=== PATIENT | female | born 1960 | race Caucasian/White ===

== ENCOUNTER 2016-06-03 17:10 | Emergency (ER) | payer OTHER ==
[~2016-06-03] VITALS: Ht 160 cm; Wt 66.2 kg
[2016-06-03 17:26] VITALS: TEMP 37.1; Ht 160 cm; Wt 66.2 kg
[2016-06-03 19:35] LABS: BASO % 0.5 %; BASO ABS # 0.04 K/uL (0-0.2); COMPLETE YES; EOS % 2.1 %; HEMATOCRIT 39.8 % (37-47); IG% 0.2 %; LYMPH % 26.5 %; LYMPH ABS # 2.23 K/uL (1.2-3.4); MEAN CORPUSCULAR HEMOGLOBIN 30.8 pg (25-34); MEAN CORPUSCULAR HGB CONC 34.2 g/dl (32-36); MONO % 10.8 %; NEUT % 59.9 %; PLATELET COUNT 302 K/uL (130-400); RED BLOOD COUNT 4.42 M/uL (4.2-5.4)
[2016-06-03 19:36] LABS: URINE APPEARANCE CLEAR (CLEAR); URINE BILIRUBIN NEG (NEG); URINE COLOR YELLOW; URINE EPITHELIAL CELL AUTO >30 /lpf (0-5); URINE NITRITE NEG (NEG); URINE PH 5.5 (4.5-7.5); URINE SPECIFIC GRAVITY 1.025 (1.000-1.030); UROBILINOGEN NEG (NEG)
[2016-06-03 19:37] LABS: MANUAL MICROSCOPIC REQUIRED? NO; REVIEW REQ? YES
[2016-06-03 19:54] LABS: ALT/SGPT 24 U/L (12-78); AST/SGOT 11 U/L (15-37); BLOOD UREA NITROGEN 15 mg/dl (7-18); BUN/CREATININE RATIO 18.2 (10-20); CARBON DIOXIDE 27 mmol/L (21-32); CHLORIDE 110 mmol/L (98-107); CREATININE 0.82 mg/dl (0.60-1.20); GLUCOSE 115 mg/dl (70-99); SODIUM 144 mmol/L (136-145)
[2016-06-03 19:57] LABS: ALKALINE PHOSPHATASE 116 U/L (45-117)
--- NOTE | 2016-06-03 21:06 | DIAGNOSTIC IMAGING REPORT ---
PELVIC ULTRASOUND, TRANSABDOMINAL AND TRANSVAGINAL HISTORY: Vaginal bleeding. COMPARISON: None. FINDINGS: Uterus: Surgically absent. No abnormality at the vaginal cuff. Right ovary: Not visualized. Left ovary: Normal in size and demonstrates normal color flow. Miscellaneous:No pelvic free fluid. IMPRESSION: Prior hysterectomy. No abnormality at the vaginal cuff. The right ovary was not visualized and may also have been resected. Normal left ovary. Electronically signed by: Fabiano Roche M.D. 06/03/2016 9:04 PM Dictated Date/Time: 06/03/2016 9:03 PM
[2016-06-03] MEDS ORDERED: KETOROLAC TROMETHAMINE 30 MG/ML VIAL IV STA (21:17)
[2016-06-03] MEDS ORDERED: NITR-5 PO (21:20)
[2016-06-03] MEDS ORDERED: NITROFURANTOIN MONOHYDRATE 100 MG CAP PO ONE (21:30)
[2016-06-03 21:32] VITALS: BP 155/76; PULSE 57; O2SAT 98
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
--- NOTE | 2016-06-06 19:05 | Pharmacy Progress Note ---
ED Pharmacist Culture FollowUp Date of Service: Jun 06, 2016. Called patient regarding genital culture with Gardnerella. Prescription for metronidazole 500 mg po BID x7 days called to [facility] at the patient's request. Case discussed with Dr. Irwin, who is the prescribing provider.
[2016-06-07 00:01] LABS: CHLAMYDIA TRACH RNA*** NOT DETECTED (NOT DETECTED); GC (NEIS GONORRHOEAE)RNA** NOT DETECTED (NOT DETECTED)
== END 2016-06-03 21:33 | disposition home or self-care (01) ==
LOC: MERGE 17:12 → C.EDB 17:12
DX: N94.10 Unspecified dyspareunia (principal); N93.9 Abnormal uterine and vaginal bleeding, unspecified; N39.0 Urinary tract infection, site not specified; M54.9 Dorsalgia, unspecified; R11.2 Nausea with vomiting, unspecified; R10.30 Lower abdominal pain, unspecified; F17.200 Nicotine dependence, unspecified, uncomplicated; Z90.711 Acquired absence of uterus with remaining cervical stump; Z83.3 Family history of diabetes mellitus; Z82.49 Family history of ischemic heart disease and other diseases of the circulatory system; Z84.1 Family history of disorders of kidney and ureter; Z82.0 Family history of epilepsy and other diseases of the nervous system

== ENCOUNTER 2021-10-20 18:55 | Inpatient (IN) ==
[2021-10-20] MEDS ORDERED: ONDANSETRON INJ 2 MG/ML 2 ML VIAL IV STA ×2 (20:34→22:33)
[2021-10-20] MEDS ORDERED: ONDANSETRON INJ 2 MG/ML 2 ML VIAL ONE (20:37)
[2021-10-20 21:00] LABS: Hemoglobin 14.8 g/dl (12.0-16.0); Mean Corpuscular Hemoglobin 30.1 pg (25.0-34.0); Mean Corpuscular Hgb Conc 33.6 g/dL (32.0-36.0); Mean Corpuscular Volume 89.6 fL (80.0-100.0); Platelet Count 348 K/uL (130-400); RDW Coefficient of Variation 13.3 % (11.5-14.5); RDW Standard Deviation 43.8 fL (36.4-46.3); Red Blood Count 4.91 M/uL (3.93-5.22); White Blood Count 13.31 K/ul (4.8-10.8)
[2021-10-20 21:20] LABS: Albumin Globulin Ratio 1.3 (0.9-2); Albumin Level 4.3 gm/dl (3.4-5.0); BUN Creatinine Ratio 22.8 (10-20); Bilirubin,Total 0.6 mg/dl (0.2-1.0); Calcium 9.5 mg/dl (8.5-10.1); Creatinine Clr Calc Pharmacy 64.2 ml/min; Est GFR (African American) 95.6 ml/min; Est GFR (Non-African American) 82.5 ml/min; Globulin 3.3 gm/dl (2.5-4.0); Potassium 3.8 mmol/L (3.5-5.1); Total Protein 7.6 gm/dl (6.0-8.3)
[2021-10-20 21:35] LABS: Basophils # (auto) 0.03 K/uL (0-0.2); Basophils % (auto) 0.2 %; Eosinophils # (auto) 0.01 K/uL (0-0.50); Eosinophils % (auto) 0.1 %; Immature Granulocytes # (auto) 0.06 K/uL (0.00-0.02); Immature Granulocytes % (auto) 0.5 %; Lymphocytes # (auto) 0.57 K/uL (1.2-3.4); Lymphocytes % (auto) 4.3 %; Monocytes # (auto) 0.46 K/uL (0.24-0.82); Monocytes % (auto) 3.5 %; Neutrophils # (auto) 12.18 K/uL (1.4-6.5); Neutrophils % (auto) 91.4 %
[2021-10-20] MEDS ORDERED: MoRPHine SULFATE 4 MG/ML 1 ML CARP\\VIAL IV STA (22:33)
[2021-10-20] MEDS ORDERED: methylPREDNISolone 125 MG/2 ML VIAL IV STA (22:57)
[2021-10-20] MEDS ORDERED: diphenhydrAMINE 50 MG/ML VIAL IV STA (22:57)
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
[2021-10-21] MEDS ORDERED: OPTIRAY 300 500mL IV ONE (01:00)
[2021-10-21] MEDS ORDERED: ACETAMINOPHEN 1,000 MG/100 ML VIAL IV STA (02:36)
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
[2021-10-21] MEDS ORDERED: LACTATED RINGER'S 1,000 ML IV ONE (02:53)
[2021-10-21] MEDS ORDERED: LORazepam 2 MG/1 ML VIAL IV STA (03:13)
[2021-10-21] MEDS ORDERED: LORazepam 0.5 MG in SYRINGE 0.25 ML IV PRN (03:16)
[2021-10-21] MEDS ORDERED: PROMETHAZINE HCL 12.5 MG in SODIUM CHLORIDE 0.9% 50 ML IV PRN (03:16)
[2021-10-21] MEDS ORDERED: ACETAMINOPHEN 325 MG TAB PO PRN (06:32)
[2021-10-21 06:41] LABS: Hematocrit (blood only) 41.5 % (34.1-44.9); Hemoglobin 13.8 g/dl (12.0-16.0); Mean Corpuscular Hemoglobin 30.5 pg (25.0-34.0); Mean Corpuscular Hgb Conc 33.3 g/dL (32.0-36.0); Mean Corpuscular Volume 91.6 fL (80.0-100.0); Mean Platelet Volume 10.7 fL (9.4-12.3); Platelet Count 330 K/uL (130-400); RDW Coefficient of Variation 13.6 % (11.5-14.5); RDW Standard Deviation 46.2 fL (36.4-46.3); Red Blood Count 4.53 M/uL (3.93-5.22); White Blood Count 9.91 K/ul (4.8-10.8)
[2021-10-21 06:48] LABS: Estimated Average Glucose 120 mg/dl; Hemoglobin A1C 5.8 % (4.5-5.6)
[2021-10-21 07:04] LABS: Basophils # (auto) 0.02 K/uL (0-0.2); Basophils % (auto) 0.2 %; Immature Granulocytes # (auto) 0.04 K/uL (0.00-0.02); Immature Granulocytes % (auto) 0.4 %; Lymphocytes # (auto) 0.37 K/uL (1.2-3.4); Lymphocytes % (auto) 3.7 %; Monocytes # (auto) 0.07 K/uL (0.24-0.82); Monocytes % (auto) 0.7 %; Neutrophils # (auto) 9.41 K/uL (1.4-6.5)
[2021-10-21 07:12] LABS: BUN Creatinine Ratio 18.9 (10-20); Creatinine Clr Calc Pharmacy 68.5 ml/min; Est GFR (African American) 103.5 ml/min; Est GFR (Non-African American) 89.3 ml/min
--- NOTE | 2021-10-21 07:51 | CT Scan Report ---
CT abd pelvis IV con only CLINICAL HISTORY: LUQ abd pain TECHNIQUE: Helical axial images of the abdomen and pelvis were obtained and displayed. Automated dose lowering techniques and/or adjustment according to patient size were utilized for this exam. This e xam was performed with intravenous contrast. COMPARISON: Comparison is made to CT abdomen pelvis 11/29/2018 FINDINGS: Lower chest: Mild interstitial thickening is seen in the lungs. Liver: Unremarkable. No focal lesions are seen. Gallbladder and biliary tree: No calcified gallstones. Normal caliber wall. No intra- or extrahepatic biliary ductal dilation. Pancreas: Unremarkable, no focal lesions. Spleen: Unremarkable. Adrenals: Unremarkable. Kidneys and ureters: Unremarkable. Bladder: Unremarkable. Reproductive organs: Patient is status post hysterectomy. Bowel: The appendix is normal. There is prominence of some loops of duodenum and proximal jejunum. In addition, there is prominence of a few more distal small bowel loops. There is no evidence of a elaine p transition point. No vascular swirling is noted. The stomach is distended. Stool is noted in the co sylvie. Lymph nodes Retroperitoneal: Unremarkable. Pelvic: Unremarkable. Mesenteric: Unremarkable. Peritoneum: Normal. Vessels: Unremarkable. Abdominal wall: Unremarkable. Bones: Unremarkable. IMPRESSION: A few loops of distended bowel are seen without karl dilation or sharp transition points. Findings m ay represent early/partial small bowel obstruction or ileus. ACT 112: Negative or not required by law. Electronically signed by: Antonino Lares M.D. 10/21/2021 7:50 AM
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
[2021-10-21] MEDS: ENOXAPARIN INJ 40 MG/0.4 ML SYR SQ SCH (10:18)
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
[2021-10-21] MEDS: LACTATED RINGER'S 1,000 ML IV SCH (15:08)
--- NOTE | 2021-10-21 16:15 | Electrocardiogram Report ---
Test Reason : Blood Pressure : / mmHG Vent. Rate : 090 BPM Atrial Rate : 090 BPM P-R Int : 118 ms QRS Dur : 074 ms QT Int : 360 ms P-R-T Axes : 064 001 024 degrees QTc Int : 440 ms Poor data quality, interpretation may be adversely affected Normal sinus rhythm Chronic T-wave inversion in Anteroseptal leads Abnormal ECG When compared with ECG of 18-NOV-2019 11:43, No significant change Confirmed by Skyler Marie ([id number]) on 10/21/2021 4:15:03 PM Referred By: REFERRED SELF Confirmed By:Skyler Marie
[2021-10-22] MEDS: LACTATED RINGER'S 1,000 ML IV SCH (04:05)
[2021-10-22 07:22] VITALS: BP 127/71; PULSE 71; TEMP 98.4; O2SAT 97
[2021-10-22] MEDS: ENOXAPARIN INJ 40 MG/0.4 ML SYR SQ SCH (08:13)
[2021-10-22 09:00] LABS: Hematocrit (blood only) 35.3 % (34.1-44.9); Hemoglobin 11.7 g/dl (12.0-16.0); Mean Corpuscular Hemoglobin 30.2 pg (25.0-34.0); Mean Corpuscular Hgb Conc 33.1 g/dL (32.0-36.0); Mean Corpuscular Volume 91.2 fL (80.0-100.0); Mean Platelet Volume 10.7 fL (9.4-12.3); Platelet Count 275 K/uL (130-400); RDW Coefficient of Variation 13.5 % (11.5-14.5); RDW Standard Deviation 45.5 fL (36.4-46.3); Red Blood Count 3.87 M/uL (3.93-5.22); White Blood Count 9.12 K/ul (4.8-10.8)
[2021-10-22 09:21] LABS: BUN Creatinine Ratio 13.2 (10-20); Calcium 8.7 mg/dl (8.5-10.1); Creatinine Clr Calc Pharmacy 74.6 ml/min; Est GFR (African American) 111.8 ml/min; Est GFR (Non-African American) 96.4 ml/min; Magnesium 1.8 mg/dl (1.7-2.4); Phosphorus 2.5 mg/dl (2.5-4.9); Potassium 3.5 mmol/L (3.5-5.1)
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
== END 2021-10-22 12:01 | disposition home or self-care (01) | DRG 390 ==
LOC: ED 18:55 → EDINP 10-21 03:15 → 3N 10-21 06:40
DX: R73.9 Hyperglycemia, unspecified; Y04.2XXA Assault by strike against or bumped into by another person, initial encounter; Z91.041 Radiographic dye allergy status; F17.200 Nicotine dependence, unspecified, uncomplicated; Z88.6 Allergy status to analgesic agent; K56.690 Other partial intestinal obstruction; R07.89 Other chest pain; Y07.03 Male partner, perpetrator of maltreatment and neglect; M79.7 Fibromyalgia

== ENCOUNTER 2023-06-28 09:35 | Inpatient (IN) ==
[2023-06-28] MEDS: MoRPHine SULFATE 4 MG/ML 1 ML CARP\\VIAL IV PRN (10:21)
[2023-06-28] MEDS: ONDANSETRON INJ 2 MG/ML 2 ML VIAL IV STA (10:21)
[2023-06-28] MEDS: SODIUM CHLORIDE 0.9% 1,000 ML IV STA (10:21)
--- NOTE | 2023-06-28 10:27 | Emergency Department Note ---
Impression & Plan SBO (small bowel obstruction), Acute upper abdominal pain, Nausea & vomiting ED Provider Note NAME: FANTA PEREZ AGE: 62 SEX: F : 1960 ARRIVES VIA: Ambulance INFORMANT: Patient, ED PROVIDER(S): Tomasz Frederick DO CHIEF COMPLAINT: Vomiting HPI: The patient is a 62-year-old female who presented to the emergency department for an evaluation of upper abdominal pain nausea vomiting and GI bleeding. The patient started noticing symptoms over the course the last few days. The patient started having upper abdominal pain nausea vomiting. She started noticing blood in her emesis. Patient called 911 because of ongoing worsening symptoms. She has a similar history of this in the past. The patient denies having any diarrhea. She has not been seen by her family doctor. She denies having any fever. ROS: See above HPI for pertinent positives & negatives. A total of 10 systems reviewed and were otherwise negative. PAST MEDICAL HISTORY: See Below PAST SURGICAL HISTORY: See Below FAMILY HISTORY: See Below SOCIAL HISTORY: See Below HOME MEDICATIONS: See Below ALLERGIES: See Below VITALS: See Below PHYSICAL EXAMINATION: GENERAL: The patient is awake and alert. The patient is very anxious appearing. EYES: The conjunctivae are clear. The pupils are round and reactive. EARS, NOSE, MOUTH AND THROAT: The nose is without any evidence of any deformity. NECK: The neck is nontender and supple. RESPIRATORY: Normal respiratory effort is noted there is no evidence of wheezing rhonchi or rales CARDIOVASCULAR: Regular rate and rhythm noted there no murmurs rubs or gallops normal S1 normal S2. GASTROINTESTINAL: The abdomen is distended. There is diffuse tenderness to palpation especially in the upper abdomen. MUSCULOSKELETAL/EXTREMITIES: There is no evidence of gross deformity full range of motion is noted in the hips and shoulders. SKIN: There is no obvious evidence of any rash. There are no petechiae, pallor or cyanosis noted. NEUROLOGIC: Patient is awake alert and oriented x3 strength is symmetric patellar reflexes are 2+ bilaterally MEDICAL DECISION MAKING: The patient is a 62-year-old female who presented to the emergency department for an evaluation of upper abdominal pain. The patient was treated with IV fluids and IV pain medication as well as IV antiemetics. She was reevaluated multiple times. I discussed the patient's laboratory and radiographic studies with her. Ultimately she was found to have signs of a bowel obstruction on CT. NG tube was ordered. The patient was feeling somewhat improved on my reevaluation. I discussed her condition with the on-call [facility] hospitalist. They have agreed to evaluate the patient in the emergency department for further management and disposition. Triage Nursing notes reviewed. Prior medical records reviewed Vital Signs: reviewed and remarkable for elevated blood pressure Differential diagnosis: Gastroenteritis, food borne illness, infections, appendicitis, diverticulitis, inflammatory bowel disease, obstruction, GI bleed, biliary pathology, volvulus, as well as other pathologies. ER treatment provided: See below Diagnostics interpreted by me: ECG: EKG was obtained in the emergency department. My interpretation is normal sinus rhythm at 77 bpm. There is no ectopy. Nonspecific anterior ST and T wave abnormalities were noted. This was compared to a tracing from October 20, 2021. No changes were noted. Cardiac Monitoring: An order was placed for continuous cardiac monitoring. The monitor shows a rate of 81 bpm with sinus rhythm Laboratory studies: As stated above and show below. Imaging studies: See below. Radiographic imaging was reviewed by myself Consultation(s): I discussed this case with Dr. Rios who is on-call for the [facility]. Past Med/Surg History Medical History (Updated 06/28/23 @ 15:43 by Tomasz Frederick DO) Stomach problems Kidney stones Degenerative disc disease Fibromyalgia Surgical History H/O section History of partial hysterectomy Social History Smoking Status: Current every day smoker Tobacco Type: Cigarettes Hx Alcohol Use: No Hx Substance Use: No Preferred Language: Bahraini Communication Ability: Effective Operator Helper Required: No Beliefs That Will Affect Care: None Current Living Situation: Family Current Living Situation Comment: son and grandson Feels Safe at Home: Yes Assistive Devices: None Allergies Allergies Allergy/AdvReac Type Severity Reaction Status Date / Time aspirin Allergy Severe Swelling Unverified 06/28/23 11:36 of Lip/Tongue/Throat NSAIDS (Non-Steroidal Allergy Severe Swelling Unverified 06/28/23 11:36 Anti-Inflamma of Lip/Tongue/Throat iodine Allergy Swelling Verified 06/28/23 11:36 of Lip/Tongue/Throat Home Meds Home Medications Medication Instructions Recorded Confirmed diphenhydramine HCl 25 mg tablet 25 mg PO TID PRN Allergy Symptoms 06/28/23 06/28/23 (Benadryl Allergy) Results & Data (ED) Vital Signs Vital Signs - 24 hr 06/28/23 09:41 06/28/23 10:18 06/28/23 10:25 Temperature 36.5 C Temperature Source Oral Pulse Rate 82 69 Pulse Rate [Apical] Pulse Rate from SpO2 Sensor Respiratory Rate 19 Blood Pressure 178/92 H Blood Pressure [Left Arm] Blood Pressure Mean 120 Blood Pressure Mean [Left Arm] Pulse Oximetry 98 100 Oxygen Delivery Method Room Air Room Air Sepsis Recent Fever Within 48 Hours No Sepsis New/Unexplained Change in Mental Status N/A Sepsis Action Taken by Nursing No Action Required 06/28/23 10:51 06/28/23 11:00 06/28/23 11:00 Temperature Temperature Source Pulse Rate 63 Pulse Rate [Apical] 60 Pulse Rate from SpO2 Sensor 64 Respiratory Rate 21 15 Blood Pressure 179/105 H Blood Pressure [Left Arm] 197/118 H Blood Pressure Mean 158 Blood Pressure Mean [Left Arm] 144 Pulse Oximetry 97 96 Oxygen Delivery Method Room Air Sepsis Recent Fever Within 48 Hours Sepsis New/Unexplained Change in Mental Status Sepsis Action Taken by Nursing 06/28/23 11:10 06/28/23 11:20 06/28/23 11:30 Temperature Temperature Source Pulse Rate 65 62 80 Pulse Rate [Apical] Pulse Rate from SpO2 Sensor 63 65 98 H Respiratory Rate 14 14 16 Blood Pressure Blood Pressure [Left Arm] Blood Pressure Mean Blood Pressure Mean [Left Arm] Pulse Oximetry 94 94 87 L Oxygen Delivery Method Sepsis Recent Fever Within 48 Hours Sepsis New/Unexplained Change in Mental Status Sepsis Action Taken by Nursing 06/28/23 11:31 06/28/23 11:31 06/28/23 11:40 Temperature Temperature Source Pulse Rate 80 66 Pulse Rate [Apical] Pulse Rate from SpO2 Sensor 78 64 Respiratory Rate 15 13 Blood Pressure 166/142 H Blood Pressure [Left Arm] Blood Pressure Mean 154 Blood Pressure Mean [Left Arm] Pulse Oximetry 94 95 Oxygen Delivery Method Sepsis Recent Fever Within 48 Hours Sepsis New/Unexplained Change in Mental Status Sepsis Action Taken by Nursing 06/28/23 11:50 Temperature Temperature Source Pulse Rate 92 H Pulse Rate [Apical] Pulse Rate from SpO2 Sensor 93 H Respiratory Rate 19 Blood Pressure Blood Pressure [Left Arm] Blood Pressure Mean Blood Pressure Mean [Left Arm] Pulse Oximetry 97 Oxygen Delivery Method Sepsis Recent Fever Within 48 Hours Sepsis New/Unexplained Change in Mental Status Sepsis Action Taken by [facility] Medications Current Medication List: was personally reviewed by me Laboratory Data Attestation: I reviewed the patient's lab results. 06/28/23 09:48 06/28/23 09:48 Lab Results 06/28/23 06/28/23 Range/Units 09:48 10:26 WBC 14.20 H (4.8-10.8) K/ul RBC 5.54 H (4.20-5.40) M/uL Hgb 16.6 H (12.0-16.0) g/dl Hct 49.1 H (37.0-47.0) % MCV 88.6 (80.0-100.0) fL MCH 30.0 (25.0-34.0) pg MCHC 33.8 (32.0-36.0) g/dL RDW Std Deviation 42.2 (36.4-46.3) fL RDW Coeff of Nella 12.9 (11.5-14.5) % Plt Count 408 H (130-400) K/uL MPV 11.3 (9.4-12.4) fL Immature Gran % (Auto) 0.6 % Neut % (Auto) 83.6 % Lymph % (Auto) 8.7 % [place] % (Auto) 4.9 % Eos % (Auto) 2.0 % Baso % (Auto) 0.2 % Neut # (Auto) 11.87 H (1.40-6.50) K/uL Lymph # (Auto) 1.23 (1.20-3.40) K/uL [place] # (Auto) 0.70 H (0.11-0.59) K/uL Eos # (Auto) 0.29 (0.00-0.50) K/uL Baso # (Auto) 0.03 (0.00-0.20) K/uL Immature Gran # (Auto) 0.08 (0.01-0.20) K/uL PT 9.6 (9.0-12.0) Seconds INR 0.9 (0.9-1.1) APTT 25 (21-31) Seconds PTT Ratio 0.9 Sodium 139 (136-145) mmol/L Potassium 4.3 (3.5-5.1) mmol/L Chloride 102 (98-107) mmol/L Carbon Dioxide 26 (21-32) mmol/L Anion Gap 11 (3-11) BUN 22 (6-23) mg/dl Creatinine 0.82 (0.6-1.2) mg/dl Est Cr Clr Drug Dosing 63.5 ml/min Est GFR ( Amer) 90.1 ml/min Est GFR (Non-Af Amer) 77.8 ml/min BUN/Creatinine Ratio 26.8 H (10-20) Glucose 155 H (70-99(Fasting)) mg/dl Calcium 10.3 (8.6-10.3) mg/dl Total Bilirubin 0.4 (0.2-1.0) mg/dl AST 18 (13-39) U/L ALT 19 (7-52) U/L Alkaline Phosphatase 138 H (34-104) U/L Troponin I High Sens 5.5 (0-14) pg/ml Total Protein 8.2 (6.0-8.3) gm/dl Albumin 4.7 (3.4-5.0) gm/dl Globulin 3.5 (2.5-4.0) gm/dl Albumin/Globulin Ratio 1.3 (0.9-2) Lipase 6 L (11-82) U/L Blood Type O Negative Antibody Screen NEGATIVE Administered Medications Morphine Sulfate (Morphine Sulfate 4 Mg/Ml 1 Ml Carp\Vial) 4 mg IV Q15M PRN PRN Reason: Pain Stop: 07/12/23 10:08 Last Admin: 06/28/23 10:21 Dose: 4 mg Documented By: TERRIE Discontinued Medications Sodium Chloride (Nss) 1,000 mls @ 999 mls/hr IV .Q1H1M STA Stop: 06/28/23 11:09 Last Infusion: 06/28/23 13:25 Dose: Infused Documented By: Admin: 06/28/23 10:21 Dose: 999 mls/hr Documented By: TERRIE Pantoprazole Sodium 40 mg/ (Syringe) 10 mls @ 5 mls/min IV NOW ONE Stop: 06/28/23 10:30 Last Admin: 06/28/23 12:50 Dose: 5 mls/min Documented By: SYEDA Famotidine (Pepcid 20mg Iv Push) 20 mg in 5 mls @ 2.5 mls/min IV NOW STA Stop: 06/28/23 10:30 Last Admin: 06/28/23 10:48 Dose: 2.5 mls/min Documented By: TERRIE Promethazine HCl 12.5 mg/ (Sodium Chloride) 50.5 mls @ 202 mls/hr IV NOW STA Stop: 06/28/23 11:34 Last Infusion: 06/28/23 13:25 Dose: Infused Documented By: Admin: 06/28/23 12:51 Dose: 202 mls/hr Documented By: SYEDA Sodium Chloride (Nss) 1,000 mls @ 999 mls/hr IV .Q1H1M ONE Stop: 06/28/23 12:33 Last Admin: 06/28/23 13:02 Dose: 999 mls/hr Documented By: SYEDA Midazolam HCl (Midazolam Hcl 1 Mg/Ml 2ml Vial) 1 mg IV NOW STA Stop: 06/28/23 11:21 Last Admin: 06/28/23 12:03 Dose: 1 mg Documented By: SYEDA Ondansetron HCl (Ondansetron Inj 2 Mg/Ml 2 Ml Vial) 4 mg IV NOW STA Stop: 06/28/23 10:10 Last Admin: 06/28/23 10:21 Dose: 4 mg Documented By: TERRIE Imaging Data Attestation: I personally reviewed and interpreted this imaging study as follows: My Impression: CT of the abdomen and pelvis was obtained in the emergency department. My interpretation is dilated loops of small bowel, final report below Radiologist's Impression: Abdomen/Pelvis CT 06/28/23 10:10 CT SCAN OF THE ABDOMEN AND PELVIS WITHOUT IV CONTRAST CLINICAL HISTORY: Vomiting. Upper abdominal pain. COMPARISON STUDY: Abdominal CT dated 08/05/2022. TECHNIQUE: CT scan of the abdomen and pelvis is performed from the lung bases to the proximal femora. Images are reviewed in the axial, sagittal, and coronal planes. IV contrast was not administered for this examination. Note that the examination was performed in suboptimal fashion without oral and IV contrast. A dose lowering technique was utilized adhering to the principles of ALARA. CT DOSE: 635.99 mGy.cm FINDINGS: Lung bases: The heart is normal in size and without pericardial effusion. The lung bases are clear noting dependent atelectasis. There is a small hiatal hernia. Liver: The unenhanced liver is normal in size, contour, and attenuation. There is no intrahepatic biliary ductal dilatation. Gallbladder: Unremarkable. Spleen: Normal in size and attenuation. Pancreas: Unremarkable. Adrenal glands: Unremarkable. Kidneys: The unenhanced kidneys are normal in size and without hydronephrosis. There are no renal calculi identified. There is no evidence of contour deforming renal mass lesion. Abdominal vasculature: The abdominal aorta is normal in course and caliber noting moderate atherosclerotic calcification. Bowel: The small bowel loops are distended and fluid-filled, measuring up to 3.4 cm in diameter. A transition point is seen in the right lower pelvis on axial image #2070. The distal/terminal ileum is decompressed, and the appearance is consistent with a small bowel obstruction. No focally thick-walled bowel loops are identified. There is no pneumatosis intestinalis or portal venous gas. Trace interloop fluid is observed. Small bowel is in the pelvis are fecalized. There are scattered colonic diverticula without CT evidence of acute diverticulitis. Fyrt-am-qvxcjwnx fecal retention is noted in the colon. The appendix is normal as visualized. Peritoneum: Trace free fluid is seen in the pelvis. No intraperitoneal free air is identified. There is a small fat-containing umbilical hernia. Lymphadenopathy: None. Pelvic viscera: The bladder is normal as visualized. The uterus is surgically absent. No adnexal lesion is seen. Skeletal structures: There is mild lumbosacral spondylosis and scoliosis. No lytic or blastic lesions are seen. IMPRESSION: 1. Small bowel obstruction. A transition point is suggested in the right lower pelvis and this is likely on the basis of adhesions. 2. There is trace interloop fluid. No intraperitoneal free air is identified. There is no pneumatosis intestinalis or portal venous gas. 3. Additional findings as above. ACT 112: Negative or not required by law. Electronically signed by: Janusz Jang M.D. 06/28/2023 11:02 AM Discharge Plan Visit Data Chief Complaint: Abdominal Pain Stated Complaint: HEMATEMESIS ED Provider: Tomasz Frederick Discharge Problem: SBO (small bowel obstruction), Acute upper abdominal pain, Nausea & vomiting Patient Disposition: Being Evaluated by Hospitalist Discharge Problem: Nausea & vomiting Qualifiers: Vomiting type: unspecified Qualified Code(s): R11.2 - Nausea with vomiting, unspecified
[2023-06-28 10:35] LABS: Basophils # (auto) 0.03 K/uL (0.00-0.20); Basophils % (auto) 0.2 %; Eosinophils # (auto) 0.29 K/uL (0.00-0.50); Hematocrit (blood only) 49.1 % (37.0-47.0); Hemoglobin 16.6 g/dl (12.0-16.0); Immature Granulocytes # (auto) 0.08 K/uL (0.01-0.20); Immature Granulocytes % (auto) 0.6 %; Lymphocytes # (auto) 1.23 K/uL (1.20-3.40); Lymphocytes % (auto) 8.7 %; Mean Corpuscular Hgb Conc 33.8 g/dL (32.0-36.0); Mean Corpuscular Volume 88.6 fL (80.0-100.0); Mean Platelet Volume 11.3 fL (9.4-12.4); Monocytes % (auto) 4.9 %; Neutrophils # (auto) 11.87 K/uL (1.40-6.50); Neutrophils % (auto) 83.6 %; Platelet Count 408 K/uL (130-400); RDW Coefficient of Variation 12.9 % (11.5-14.5); RDW Standard Deviation 42.2 fL (36.4-46.3); Red Blood Count 5.54 M/uL (4.20-5.40)
[2023-06-28] MEDS: FAMOTIDINE 20MG IV PUSH 20 MG/5 ML SYR IV STA (10:48)
--- NOTE | 2023-06-28 11:04 | CT Scan Report ---
CT SCAN OF THE ABDOMEN AND PELVIS WITHOUT IV CONTRAST CLINICAL HISTORY: Vomiting. Upper abdominal pain. COMPARISON STUDY: Abdominal CT dated 08/05/2022. TECHNIQUE: CT scan of the abdomen and pelvis is performed from the lung bases to the proximal femora. Images are reviewed in the axial, sagittal, and coronal planes. IV contrast was not administered for this examination. Note that the examination was performed in suboptimal fashion without oral and IV contrast. A dose lowering technique was utilized adhering to the principles of ALARA. CT DOSE: 635.99 mGy.cm FINDINGS: Lung bases: The heart is normal in size and without pericardial effusion. The lung bases are clear no ting dependent atelectasis. There is a small hiatal hernia. Liver: The unenhanced liver is normal in size, contour, and attenuation. There is no intrahepatic gerardo iary ductal dilatation. Gallbladder: Unremarkable. Spleen: Normal in size and attenuation. Pancreas: Unremarkable. Adrenal glands: Unremarkable. Kidneys: The unenhanced kidneys are normal in size and without hydronephrosis. There are no renal nelly culi identified. There is no evidence of contour deforming renal mass lesion. Abdominal vasculature: The abdominal aorta is normal in course and caliber noting moderate atheroscle rotic calcification. Bowel: The small bowel loops are distended and fluid-filled, measuring up to 3.4 cm in diameter. A tr ansition point is seen in the right lower pelvis on axial image #2070. The distal/terminal ileum is d ecompressed, and the appearance is consistent with a small bowel obstruction. No focally thick-walled bowel loops are identified. There is no pneumatosis intestinalis or portal venous gas. Trace interlo op fluid is observed. Small bowel is in the pelvis are fecalized. There are scattered colonic diverti cula without CT evidence of acute diverticulitis. Dpad-iv-ayhifwnw fecal retention is noted in the co sylvie. The appendix is normal as visualized. Peritoneum: Trace free fluid is seen in the pelvis. No intraperitoneal free air is identified. There is a small fat-containing umbilical hernia. Lymphadenopathy: None. Pelvic viscera: The bladder is normal as visualized. The uterus is surgically absent. No adnexal lesi on is seen. Skeletal structures: There is mild lumbosacral spondylosis and scoliosis. No lytic or blastic lesions are seen. IMPRESSION: 1. Small bowel obstruction. A transition point is suggested in the right lower pelvis and this is lik opal on the basis of adhesions. 2. There is trace interloop fluid. No intraperitoneal free air is identified. There is no pneumatosis intestinalis or portal venous gas. 3. Additional findings as above. ACT 112: Negative or not required by law. Electronically signed by: Janusz Jang M.D. 06/28/2023 11:02 AM
[2023-06-28 11:26] LABS: Troponin I High Sensitivity 5.5 pg/ml (0-14)
[2023-06-28 11:28] LABS: Albumin Globulin Ratio 1.3 (0.9-2); Albumin Level 4.7 gm/dl (3.4-5.0); BUN Creatinine Ratio 26.8 (10-20); Bilirubin,Total 0.4 mg/dl (0.2-1.0); Calcium 10.3 mg/dl (8.6-10.3); Creatinine Clr Calc Pharmacy 63.5 ml/min; Est GFR (African American) 90.1 ml/min; Est GFR (Non-African American) 77.8 ml/min; Globulin 3.5 gm/dl (2.5-4.0); Potassium 4.3 mmol/L (3.5-5.1); Total Protein 8.2 gm/dl (6.0-8.3)
--- NOTE | 2023-06-28 11:41 | History & Physical Report ---
Date of Service June 28, 2023 Assessment & Plan (1) Small bowel obstruction: (2) Abdominal pain: (3) Elevated BP without diagnosis of hypertension: (4) Leucocytosis: Plan 62 year old female with h/o SBOs who presented with abd pain and vomiting and found to have SBO. CT A/P 1. Small bowel obstruction. A transition point is suggested in the right lower pelvis and this is likely on the basis of adhesions. 2. There is trace interloop fluid. No intraperitoneal free air is identified. There is no pneumatosis intestinalis or portal venous gas. Small bowel obstruction suspected due to adhesions- CT as above, NG tube placed in ED. Continue conservative management with npo, bowel rest, ivf, iv antiemetics prn, iv analgesics prn, NG suction. I spoke to surgery Dr Siu who will see the patient in consult. If fails to resolve with conservative management, she will need surgery. Leucocytosis- likely reactive, recheck in am Elevated BP- no h/o HTN- likely due to above. Will monitor. IV HLZ prn Tobacco abuse- smokes 1 pack every 3 days. Declined nicotine patch Hematemesis- likely Betzy Edwards tear due to vomiting episodes. H and H at 16, likely some hemoconcentration. Will monitor with NG tube. Recheck H and H later today. Will continue IV PPI for now. If concerning, will need GI eval. DVT ppx- SCDs. Holding chemoppx d/t concern for hematemesis- can resume tomorrow if stable Dispo- Admit to [facility] on tele Time spent- approx 75 mins Updated sister at bedside History of Present Illness Chief Complaint: abd pain/vomiting Primary Care Provider: Sim Adame MD 62 year old female with h/o fibromyalgia, DDD, tobacco abuse who presented to the ED with nausea, vomiting and abd pain which started yesterday after 3 pm yesterday. She had multiple episodes of vomiting and there was some blood in the latter vomitus. She still smokes 1 pack every 3 days. Does not drink alcohol or drugs. H/o prior CS but no other abdominal surgeries. Does not take any medications. In the ED, she was found to have SBO in CT and NG tube was placed. Her BP was higher when she came but was in 160s during my encounter. Allergies Allergy/AdvReac Type Severity Reaction Status Date / Time aspirin Allergy Severe Swelling Unverified 06/28/23 11:36 of Lip/Tongue/Throat NSAIDS (Non-Steroidal Allergy Severe Swelling Unverified 06/28/23 11:36 Anti-Inflamma of Lip/Tongue/Throat iodine Allergy Swelling Verified 06/28/23 11:36 of Lip/Tongue/Throat Home Medications Medication Instructions Recorded Confirmed Type diphenhydramine HCl 25 mg tablet 25 mg PO TID PRN Allergy Symptoms 06/28/23 06/28/23 History (Benadryl Allergy) Past Med/Surg History Medical History Stomach problems Kidney stones Degenerative disc disease Fibromyalgia Surgical History H/O section History of partial hysterectomy Social History Smoking Status: Current every day smoker Tobacco Type: Cigarettes Hx Alcohol Use: No Hx Substance Use: No Preferred Language: Czech Communication Ability: Effective Infection Preventionist Required: No Beliefs That Will Affect Care: None Current Living Situation: Family Current Living Situation Comment: son and grandson Feels Safe at Home: Yes Assistive Devices: None Review of Systems Review of Systems: All systems reviewed & are unremarkable except as noted in Subjective Physical Exam Physical Exam: General: Lying comfortably in bed, not in distress, on room air HEENT: EOMI, SKIP. NG tube with suction- no blood noted Chest: Clear breath sounds bilaterally, no wheezes or crackles CVS: Regular rate and rhythm, normal heart sounds, no murmur Abdomen: Soft, not distended, bowel sounds present Neuro: Awake, alert, oriented, conversing well, non focal Extremities: No edema Psych: Anxious Results & Data Results & Data Vital Signs (Past 12 Hours) Vital Signs Temp Pulse Pulse Resp BP BP Pulse Ox 06/28/23 10:51 60 21 197/118 H 97 06/28/23 10:25 100 06/28/23 10:18 69 06/28/23 09:41 36.5 C 82 19 178/92 H 98 O2 Del Method 06/28/23 10:51 Room Air 06/28/23 10:25 Room Air 06/28/23 10:18 06/28/23 09:41 Room Air Laboratory Results Short CBC 06/28/23 Range/Units 09:48 WBC 14.20 H (4.8-10.8) K/ul Hgb 16.6 H (12.0-16.0) g/dl Hct 49.1 H (37.0-47.0) % Plt Count 408 H (130-400) K/uL BMP 06/28/23 09:48 Sodium 139 Potassium 4.3 Chloride 102 Carbon Dioxide 26 BUN 22 Creatinine 0.82 Glucose 155 H Calcium 10.3 Liver Function 06/28/23 Range/Units 09:48 Total Bilirubin 0.4 (0.2-1.0) mg/dl AST 18 (13-39) U/L ALT 19 (7-52) U/L Alkaline Phosphatase 138 H (34-104) U/L Albumin 4.7 (3.4-5.0) gm/dl Diagnostic Findings Abdomen/Pelvis CT 06/28/23 10:10 CT SCAN OF THE ABDOMEN AND PELVIS WITHOUT IV CONTRAST CLINICAL HISTORY: Vomiting. Upper abdominal pain. COMPARISON STUDY: Abdominal CT dated 08/05/2022. TECHNIQUE: CT scan of the abdomen and pelvis is performed from the lung bases to the proximal femora. Images are reviewed in the axial, sagittal, and coronal planes. IV contrast was not administered for this examination. Note that the examination was performed in suboptimal fashion without oral and IV contrast. A dose lowering technique was utilized adhering to the principles of ALARA. CT DOSE: 635.99 mGy.cm FINDINGS: Lung bases: The heart is normal in size and without pericardial effusion. The lung bases are clear noting dependent atelectasis. There is a small hiatal hernia. Liver: The unenhanced liver is normal in size, contour, and attenuation. There is no intrahepatic biliary ductal dilatation. Gallbladder: Unremarkable. Spleen: Normal in size and attenuation. Pancreas: Unremarkable. Adrenal glands: Unremarkable. Kidneys: The unenhanced kidneys are normal in size and without hydronephrosis. There are no renal calculi identified. There is no evidence of contour deforming renal mass lesion. Abdominal vasculature: The abdominal aorta is normal in course and caliber noting moderate atherosclerotic calcification. Bowel: The small bowel loops are distended and fluid-filled, measuring up to 3.4 cm in diameter. A transition point is seen in the right lower pelvis on axial image #2070. The distal/terminal ileum is decompressed, and the appearance is consistent with a small bowel obstruction. No focally thick-walled bowel loops are identified. There is no pneumatosis intestinalis or portal venous gas. Trace interloop fluid is observed. Small bowel is in the pelvis are fecalized. There are scattered colonic diverticula without CT evidence of acute diverticulitis. Aqid-bd-ibgqgyvp fecal retention is noted in the colon. The appendix is normal as visualized. Peritoneum: Trace free fluid is seen in the pelvis. No intraperitoneal free air is identified. There is a small fat-containing umbilical hernia. Lymphadenopathy: None. Pelvic viscera: The bladder is normal as visualized. The uterus is surgically absent. No adnexal lesion is seen. Skeletal structures: There is mild lumbosacral spondylosis and scoliosis. No lyt ic or blastic lesions are seen. IMPRESSION: 1. Small bowel obstruction. A transition point is suggested in the right lower pelvis and this is likely on the basis of adhesions. 2. There is trace interloop fluid. No intraperitoneal free air is identified. There is no pneumatosis intestinalis or portal venous gas. 3. Additional findings as above. ACT 112: Negative or not required by law. Electronically signed by: Janusz Jang M.D. 06/28/2023 11:02 AM
[2023-06-28 11:44] LABS: INR 0.9 (0.9-1.1); Partial Thromboplastin Ratio 0.9; Partial Thromboplastin Time 25 Seconds (21-31); Prothrombin Time 9.6 Seconds (9.0-12.0)
[2023-06-28] MEDS: MIDAZOLAM HCL 1 MG/ML 2ML VIAL IV STA (12:03)
[2023-06-28] MEDS: PANTOprazole 40 MG in SYRINGE 0 ML IV ONE (12:50)
[2023-06-28] MEDS: PROMETHAZINE HCL 12.5 MG in SODIUM CHLORIDE 0.9% 50 ML IV STA (12:51)
--- NOTE | 2023-06-28 13:00 | Surgery Consultation ---
Date of Consultation June 28, 2023 Assessment & Plan (1) Small bowel obstruction: NG decompression NPO IVF conservative treatment likely will resolves, o/w exploration indicated Present on Admission?: Yes History of Present Illness History of Present Illness This is a 62YO female with a CT scan suggestive of SBO associated with abdominal pain nausea vomiting. She has had multiple previous admissions for similar episodes. This may have been precipitated by a recent allergic reaction. The patient started noticing symptoms over the course the last few days. The patient started having upper abdominal pain nausea vomiting. She started noticing blood in her emesis. last BM was yesterday and no flatus today. Allergies Allergy/AdvReac Type Severity Reaction Status Date / Time aspirin Allergy Severe Swelling Unverified 06/28/23 11:36 of Lip/Tongue/Throat NSAIDS (Non-Steroidal Allergy Severe Swelling Unverified 06/28/23 11:36 Anti-Inflamma of Lip/Tongue/Throat iodine Allergy Swelling Verified 06/28/23 11:36 of Lip/Tongue/Throat Home Medications Medication Instructions Recorded Confirmed Type diphenhydramine HCl 25 mg tablet 25 mg PO TID PRN Allergy Symptoms 06/28/23 06/28/23 History (Benadryl Allergy) Patient History Medical History (Updated 06/28/23 @ 11:54 by Jerald Rios MD) Stomach problems Kidney stones Degenerative disc disease Fibromyalgia Surgical History H/O section History of partial hysterectomy Social History Smoking Status: Current every day smoker Tobacco Type: Cigarettes Hx Alcohol Use: No Hx Substance Use: No Preferred Language: Haitian Communication Ability: Effective [employer] Required: No Beliefs That Will Affect Care: None Current Living Situation: Family Current Living Situation Comment: son and grandson Feels Safe at Home: Yes Assistive Devices: None Review of Systems Constitutional: + anorexia; no fever and no chills Eyes: no problem reported Ear, Nose, Mouth, Throat: no problem reported Respiratory: no cough and no dyspnea Cardiovascular: no chest pain Gastrointestinal: + abdominal pain, + nausea, + vomiting, + hematemesis and + change in bowel habits Genitourinary: no dysuria Musculoskeletal: no back pain Integumentary: no problem reported Neurologic: + generalized weakness; no localized wea kness Psychiatric: no behavioral changes Endocrine: + fatigue Hematologic / Lymphatic: no easy bleeding and no easy bruising Physical Exam Constitutional: WD/WN, vitals as above Eyes: PERRL, conjunctivae normal, anicteric sclerae ENMT: external ear and nose normal, oropharynx normal Neck: trachea midline Respiratory: normal respiratory effort, lungs clear to auscultation Cardiovascular: RRR, no murmur, no edema Gastrointestinal (Abdomen): Inspection/Auscultation: abdomen normal to inspection, + abdomen distended, normal bowel sounds and + abdominal surgical scar; no visible herniation Percussion/Palpation: + abdomen tender and abdomen soft; no guarding and abdomen not rigid Musculoskeletal: Head/Neck/Chest: normocephalic and head atraumatic Skin: no rashes, warm and dry Results & Data Vital Signs (Past 12 Hours) Vital Signs Temp Pulse Pulse Resp BP BP Pulse Ox 06/28/23 10:51 60 21 197/118 H 97 06/28/23 10:25 100 06/28/23 10:18 69 06/28/23 09:41 36.5 C 82 19 178/92 H 98 O2 Del Method 06/28/23 10:51 Room Air 06/28/23 10:25 Room Air 06/28/23 10:18 06/28/23 09:41 Room Air Diagnostic Findings CT SCAN OF THE ABDOMEN AND PELVIS WITHOUT IV CONTRAST CLINICAL HISTORY: Vomiting. Upper abdominal pain. COMPARISON STUDY: Abdominal CT dated 08/05/2022. TECHNIQUE: CT scan of the abdomen and pelvis is performed from the lung bases to the proximal femora. Images are reviewed in the axial, sagittal, and coronal planes. IV contrast was not administered for this examination. Note that the examination was performed in suboptimal fashion without oral and IV contrast. A dose lowering technique was utilized adhering to the principles of ALARA. CT DOSE: 635.99 mGy.cm FINDINGS: Lung bases: The heart is normal in size and without pericardial effusion. The lung bases are clear noting dependent atelectasis. There is a small hiatal hernia. Liver: The unenhanced liver is normal in size, contour, and attenuation. There is no intrahepatic biliary ductal dilatation. Gallbladder: Unremarkable. Spleen: Normal in size and attenuation. Pancreas: Unremarkable. Adrenal glands: Unremarkable. Kidneys: The unenhanced kidneys are normal in size and without hydronephrosis. There are no renal calculi identified. There is no evidence of contour deforming renal mass lesion. Abdominal vasculature: The abdominal aorta is normal in course and caliber noting moderate atherosclerotic calcification. Bowel: The small bowel loops are distended and fluid-filled, measuring up to 3.4 cm in diameter. A transition point is seen in the right lower pelvis on axial image #[id number]. The distal/terminal ileum is decompressed, and the appearance is consistent with a small bowel obstruction. No focally thick-walled bowel loops are identified. There is no pneumatosis intestinalis or portal venous gas. Trace interloop fluid is observed. Small bowel is in the pelvis are fecalized. There are scattered colonic diverticula without CT evidence of acute diverticulitis. [id number] fecal retention is noted in the colon. The appendix is normal as visualized. Peritoneum: Trace free fluid is seen in the pelvis. No intraperitoneal free air is identified. There is a small fat-containing umbilical hernia. Lymphadenopathy: None. Pelvic viscera: The bladder is normal as visualized. The uterus is surgically absent. No adnexal lesion is seen. Skeletal structures: There is mild lumbosacral spondylosis and scoliosis. No lytic or blastic lesions are seen. IMPRESSION: 1. Small bowel obstruction. A transition point is suggested in the right lower pelvis and this is likely on the basis of adhesions. 2. There is trace interloop fluid. No intraperitoneal free air is identified. There is no pneumatosis intestinalis or portal venous gas. 3. Additional findings as above.
[2023-06-28] MEDS: SODIUM CHLORIDE 0.9% 1,000 ML IV ONE (13:02)
--- NOTE | 2023-06-28 13:56 | XRay Report ---
KUB HISTORY: Status post placement of an enteric tube. Post NG Tube placement x-ray COMPARISON: CT same day FINDINGS: An enteric tube has been placed which coils within the stomach, distal tip projected inferi susanne within the expected location of the gastric cardia. Persistent small bowel distention, unchanged . The lower abdomen and pelvis are excluded from the [id number]. Moderate fecal retention right he micolon. Cardiomegaly. No renal calculi. No ureteral calculi. No pneumoperitoneum or pneumatosis. No fracture. IMPRESSION: 1. Enteric tube coiled within the stomach with distal tip in the expected location of the gastric car ambrocio. 2. Persistent small bowel obstruction. ACT 112: Negative or not required by law. The above report was generated using voice recognition software. It may contain grammatical, syntax o r spelling errors. Electronically signed by: Vipul Samson M.D. 06/28/2023 1:54 PM
[2023-06-28] MEDS: D5W AND 1/2NSS 1,000 ML IV SCH (16:51)
[2023-06-28] MEDS: HYDROmorphone INJ 0.5 MG/0.5 ML SYR IV PRN (16:51)
[2023-06-28 17:32] LABS: Hematocrit (blood only) 39.8 % (37.0-47.0); Hemoglobin 12.9 g/dl (12.0-16.0)
[2023-06-28] MEDS: hydrALAZINE HCL 20 MG/ML VIAL IV SCH (17:54)
[2023-06-28] MEDS: ONDANSETRON INJ 2 MG/ML 2 ML VIAL IV PRN (20:38)
[2023-06-28] MEDS: PANTOprazole 40 MG in SYRINGE 0 ML IV SCH (20:38)
[2023-06-28] MEDS: ACETAMINOPHEN 1,000 MG/100 ML VIAL IV PRN (20:44)
[2023-06-28 23:12] LABS: Hematocrit (blood only) 41.3 % (37.0-47.0); Hemoglobin 13.8 g/dl (12.0-16.0)
[2023-06-29 06:28] LABS: Basophils # (auto) 0.03 K/uL (0.00-0.20); Basophils % (auto) 0.2 %; Eosinophils # (auto) 0.51 K/uL (0.00-0.50); Eosinophils % (auto) 3.6 %; Hematocrit (blood only) 41.8 % (37.0-47.0); Hemoglobin 14.1 g/dl (12.0-16.0); Immature Granulocytes # (auto) 0.07 K/uL (0.01-0.20); Immature Granulocytes % (auto) 0.5 %; Lymphocytes # (auto) 1.53 K/uL (1.20-3.40); Lymphocytes % (auto) 10.9 %; Mean Corpuscular Hemoglobin 30.7 pg (25.0-34.0); Mean Corpuscular Hgb Conc 33.7 g/dL (32.0-36.0); Mean Corpuscular Volume 90.9 fL (80.0-100.0); Monocytes # (auto) 1.14 K/uL (0.11-0.59); Monocytes % (auto) 8.1 %; Neutrophils # (auto) 10.77 K/uL (1.40-6.50); Neutrophils % (auto) 76.7 %; Platelet Count 333 K/uL (130-400); RDW Coefficient of Variation 13.2 % (11.5-14.5); RDW Standard Deviation 43.8 fL (36.4-46.3); White Blood Count 14.05 K/ul (4.8-10.8)
[2023-06-29 07:20] LABS: Total Protein 5.7 gm/dl (6.0-8.3)
[2023-06-29 07:21] LABS: Albumin Globulin Ratio 1.5 (0.9-2); Albumin Level 3.4 gm/dl (3.4-5.0); BUN Creatinine Ratio 11.6 (10-20); Bilirubin,Total 0.4 mg/dl (0.2-1.0); Creatinine Clr Calc Pharmacy 76.5 ml/min; Est GFR (African American) 109.7 ml/min; Est GFR (Non-African American) 94.6 ml/min; Globulin 2.3 gm/dl (2.5-4.0); Magnesium 1.9 mg/dl (1.7-2.4); Potassium 3.8 mmol/L (3.5-5.1)
[2023-06-29] MEDS ORDERED: hydrALAZINE HCL 20 MG/ML VIAL IV PRN (07:29)
--- NOTE | 2023-06-29 07:44 | XRay Report ---
KUB CLINICAL HISTORY: Enteric tube assessment. FINDINGS: An AP, portable, upright view of the lower chest and upper abdomen is compared to abdominal radiograph and CT dated 06/28/2023. An enteric tube is in place. The tip is coiled below the diaphragm projecting over the gastric fundus. There is persistent gaseous distention of the small bowel loops in the upper abdomen indicating persistent obstruction. No intraperitoneal free air is seen below the diaphragm. There are no abnormal calcifications seen in the upper abdomen. The skeletal structures a re osteopenic and appear intact. Scarring/atelectasis is noted at the lung bases. IMPRESSION: 1. An enteric tube is in place as above. 2. Persistent small bowel obstruction. Electronically signed by: Janusz Jang M.D. 06/29/2023 7:42 AM
--- NOTE | 2023-06-29 08:36 | Surgery Progress Note ---
Date of Service June 29, 2023 Assessment & Plan (1) SBO (small bowel obstruction): Plan: clamp NG, remove today if no N/V ambulate IVF if NG out today sips/chips only Admission and Anticipated Discharge Date Admission Date: June 28, 2023 Subjective passing flatus pain controlled Review of Systems Constitutional: no fever and no chills Respiratory: no cough and no dyspnea Cardiovascular: no chest pain Gastrointestinal: + abdominal pain; no nausea and no vomit ing passing flatus Genitourinary: no dysuria Neurologic: no localized weakness and no generalized weakness Psychiatric: no behavioral changes Physical Exam Constitutional: WD/WN, vitals as above Eyes: PERRL, conjunctivae normal, anicteric sclerae Respiratory: normal respiratory effort, lungs clear to auscultation Cardiovascular: RRR, no murmur, no edema Gastrointestinal (Abdomen): Inspection/Auscultation: abdomen normal to inspection and normal bowel sounds; abdomen not distended Percussion/Palpation: abdomen soft; abdomen nontender, no guarding and abdomen not rigid Musculoskeletal: Head/Neck/Chest: normocephalic and head atraumatic Skin: no rashes, warm and dry Results & Data Vital Signs (Past 12 Hours) Vital Signs Temp Pulse Pulse Resp BP Pulse Ox O2 Del Method 06/29/23 07:48 36.8 C 77 16 160/79 H 97 Room Air 06/29/23 07:07 68 06/29/23 04:20 36.7 C 69 20 153/74 H 95 Room Air 06/29/23 00:00 93 H 06/28/23 23:28 36.7 C 75 20 146/89 H 97 Room Air
[2023-06-29 10:06] LABS: Appearance Urine Clear (Clear); Bacteria Urine Automated None Seen (None Seen); Bilirubin Urine Negative (Negative); Blood Urine Trace (Negative); Cast Urine Automated 0-2 /lpf (0-2); Color Urine Yellow; Glucose Urine UA Negative (Negative); Ketones Urine Negative (Negative); Leukocyte Esterase Urine Negative (Negative); Nitrite Urine Negative (Negative); Protein Urine Negative (Negative); RBC Urine Automated 0-2 /hpf (0-2); Urobilinogen Urine Negative (Negative); WBC Urine Automated 0-5 /hpf (0-5); pH Urine 5.5 (4.5-7.5)
--- NOTE | 2023-06-29 16:26 | Hospitalist Progress Note ---
Date of Service June 29, 2023 Assessment & Plan (1) Small bowel obstruction: (2) Abdominal pain: (3) Elevated BP without diagnosis of hypertension: (4) Leucocytosis: Plan per admitting service notes with addendum: 62 year old female with h/o SBOs who presented with abd pain and vomiting and found to have SBO. CT A/P 1. Small bowel obstruction. A transition point is suggested in the right lower pelvis and this is likely on the basis of adhesions. 2. There is trace interloop fluid. No intraperitoneal free air is identified. There is no pneumatosis intestinalis or portal venous gas. Small bowel obstruction suspected due to adhesions- CT as above, NG tube placed in ED. Continue conservative management with npo, bowel rest, ivf, iv antiemetics prn, iv analgesics prn, NG suction. I spoke to surgery Dr Siu who will see the patient in consult. If fails to resolve with conservative management, she will need surgery. -- evaluated by Gen Surg continue conservative management for now NPO, IV fluids d/c NG tube Elevated BP- no h/o HTN- likely due to above. - PRN Hydralazine Tobacco abuse - smokes 1 pack every 3 days. - Declined nicotine patch Hematemesis- likely Betzy Edwards tear due to vomiting episodes. H and H at 16, likely some hemoconcentration. Will monitor with NG tube. Recheck H and H later today. Will continue IV PPI for now. If concerning, will need GI eval. - Hg stable at 14 continue Protonix 40mg IV BID DVT ppx- SCDs Dispo- Admit to [facility] on tele Admission and Anticipated Discharge Date Admission Date: June 28, 2023 Subjective ff up for SBO, etc seen resting in bed, comfortable states she feels that she is improving compared to last night abdominal pain improving no nausea requesting if NG tube can be removed no chest pain, dyspnea, palpitations, dizziness no other symptoms Review of Systems Review of Systems: all noted and negative except for above Physical Exam Physical Exam: General- oriented x 3, not in distress, speaks in sentences with no effort or accessory muscle use Eyes- anicteric Neck- no JVD NG tube in place - draining non bloody output Lungs- clear breath sounds bilaterally, no rales/wheezes Heart- normal rate, regular rhythm; no murmurs Abdomen- hypoactive bowel sounds, nondistended, soft, nontender Extremities- no pretibial edema, no calf tenderness Neuro- alert, oriented x 3; no gross focal neurologic deficits Skin- warm & dry Results & Data Results & Data Vital Signs (Past 12 Hours) Vital Signs Temp Pulse Pulse Resp BP Pulse Ox O2 Del Method 06/29/23 16:01 36.7 C 83 16 164/89 H 98 Room Air 06/29/23 14:00 58 L 06/29/23 12:22 161/71 H 06/29/23 11:17 36.9 C 75 16 174/80 H 96 Room Air 06/29/23 07:48 36.8 C 77 16 160/79 H 97 Room Air 06/29/23 07:07 68 all noted and reviewed including below
--- NOTE | 2023-06-29 20:59 | Communication Note ---
Date of Service: June 29, 2023 Patient asking for Benadryl for itching attributed to adhesive on telemetry patches/IV dressing as per RN. Patient later noted to have right face swelling. No chest pain, no SOB. AP Hypersensitivity reaction Possibly from telemetry patches adhesive Benadryl, Solu-Medrol 1 dose Daily loratadine while patient on telemetry (No substitute to telemetry patches at [facility] as as per rehab nursing tech.)
[2023-06-29] MEDS ORDERED: methylPREDNISolone 125 MG/2 ML VIAL IV STA (21:00)
[2023-06-29] MEDS ORDERED: diphenhydrAMINE 50 MG/ML VIAL IV PRN (21:02)
[2023-06-29] MEDS: diphenhydrAMINE 50 MG/ML VIAL IV STA (21:21)
[2023-06-29] MEDS: LORATADINE 10 MG TAB PO ONE (22:02)
[2023-06-29] MEDS: methylPREDNISolone 20 MG in SYRINGE 0 ML IV STA (22:02)
[2023-06-30] MEDS: NSS + 20MEQ KCL 20 MEQ/1,000 ML BAG IV SCH (00:53)
--- NOTE | 2023-06-30 09:53 | Surgery Progress Note ---
Date of Service June 30, 2023 Assessment & Plan (1) SBO (small bowel obstruction): Plan: resolved regular diet if does well discharge today per medical team Admission and Anticipated Discharge Date Admission Date: June 28, 2023 Subjective passing flatus bowel function returned no pain Review of Systems Constitutional: no fever and no chills Respiratory: no cough and no dyspnea Cardiovascular: no chest pain Gastrointestinal: + change in bowel habits; no abdominal p ain, no nausea and no vomiting Genitourinary: no dysuria Neurologic: no localized weakness and no generalized weakness Psychiatric: no behavioral changes Physical Exam Constitutional: WD/WN, vitals as above ENMT: external ear and nose normal, oropharynx normal Respiratory: normal respiratory effort, lungs clear to auscultation Cardiovascular: RRR, no murmur, no edema Gastrointestinal (Abdomen): Inspection/Auscultation: abdomen normal to inspection and normal bowel sounds; abdomen not distended Percussion/Palpation: abdomen soft; abdomen nontender, no guarding and abdomen not rigid Musculoskeletal: Head/Neck/Chest: normocephalic and head atraumatic Skin: no rashes, warm and dry Results & Data Vital Signs (Past 12 Hours) Vital Signs Temp Pulse Pulse Resp BP Pulse Ox O2 Del Method 06/30/23 07:36 37.1 C 71 16 152/88 H 97 Room Air 06/30/23 05:01 37.2 C 92 H 20 171/91 H 96 Room Air 06/30/23 00:00 68 06/29/23 23:38 37.0 C 92 H 20 158/86 H 93 Room Air
[2023-06-30] MEDS: predniSONE 20 MG TAB PO SCH (15:06)
--- NOTE | 2023-06-30 18:57 | Hospitalist Progress Note ---
Date of Service June 30, 2023 Assessment & Plan (1) Small bowel obstruction: (2) Abdominal pain: (3) Elevated BP without diagnosis of hypertension: (4) Leucocytosis: Plan per admitting service notes with addendum: 62 year old female with h/o SBOs who presented with abd pain and vomiting and found to have SBO. CT A/P 1. Small bowel obstruction. A transition point is suggested in the right lower pelvis and this is likely on the basis of adhesions. 2. There is trace interloop fluid. No intraperitoneal free air is identified. There is no pneumatosis intestinalis or portal venous gas. Small bowel obstruction suspected due to adhesions- CT as above, NG tube placed in ED. Continue conservative management with npo, bowel rest, ivf, iv antiemetics prn, iv analgesics prn, NG suction. I spoke to surgery Dr Siu who will see the patient in consult. If fails to resolve with conservative management, she will need surgery. -- evaluated by Gen Surg continue conservative management for now NPO, IV fluids d/c NG tube Elevated BP- no h/o HTN- likely due to above. - PRN Hydralazine Tobacco abuse - smokes 1 pack every 3 days. - Declined nicotine patch Hematemesis- likely Betzy Edwards tear due to vomiting episodes. H and H at 16, likely some hemoconcentration. Will monitor with NG tube. Recheck H and H later today. Will continue IV PPI for now. If concerning, will need GI eval. - Hg stable at 14 continue Protonix 40mg IV BID DVT ppx- SCDs Dispo- Admit to [facility] on tele Admission and Anticipated Discharge Date Admission Date: June 28, 2023 Results & Data Results & Data Vital Signs (Past 12 Hours) Vital Signs Temp Pulse Pulse Resp BP BP Pulse Ox 06/30/23 16:44 37.0 C 75 16 169/100 H 156/82 H 98 06/30/23 11:16 37.0 C 75 16 156/82 H 98 06/30/23 08:00 72 06/30/23 07:36 37.1 C 71 16 152/88 H 97 O2 Del Method 06/30/23 16:44 06/30/23 11:16 Room Air 06/30/23 08:00 06/30/23 07:36 Room Air
--- NOTE | 2023-06-30 19:46 | Discharge Summary ---
Discharge Summary Date of Service June 30, 2023 Notes For Next Care Provider Medication Changes From Visit Loratadine-antihistamine for allergic reaction Prednisone-steroid course for allergic reaction Benadryl as needed for itching Protonix-antacid before possible esophageal tear from vomiting Admission HPI Per Admitting Provider 62 year old female with h/o fibromyalgia, DDD, tobacco abuse who presented to the ED with nausea, vomiting and abd pain which started yesterday after 3 pm yesterday. She had multiple episodes of vomiting and there was some blood in the latter vomitus. She still smokes 1 pack every 3 days. Does not drink alcohol or drugs. H/o prior CS but no other abdominal surgeries. Does not take any medications. In the ED, she was found to have SBO in CT and NG tube was placed. Her BP was higher when she came but was in 160s during my encounter. Admission Exam Per Admitting Provider General: Lying comfortably in bed, not in distress, on room air HEENT: EOMI, SKIP. NG tube with suction- no blood noted Chest: Clear breath sounds bilaterally, no wheezes or crackles CVS: Regular rate and rhythm, normal heart sounds, no murmur Abdomen: Soft, not distended, bowel sounds present Neuro: Awake, alert, oriented, conversing well, non focal Extremities: No edema Psych: Anxious Principal Dx & Hospital Course #1 = Principal Diagnosis (1) Small bowel obstruction: (2) Abdominal pain: (3) Elevated BP without diagnosis of hypertension: (4) Leucocytosis: Plan per admitting service notes with addendum: 62 year old female with h/o SBOs who presented with abd pain and vomiting and found to have SBO. CT A/P 1. Small bowel obstruction. A transition point is suggested in the right lower pelvis and this is likely on the basis of adhesions. 2. There is trace interloop fluid. No intraperitoneal free air is identified. There is no pneumatosis intestinalis or portal venous gas. Small bowel obstruction suspected due to adhesions- CT as above, NG tube placed in ED. Continue conservative management with npo, bowel rest, ivf, iv antiemetics prn, iv analgesics prn, NG suction. I spoke to surgery Dr Siu who will see the patient in consult. If fails to resolve with conservative management, she will need surgery. -- evaluated by Gen Surg placed on conservative management NPO, IV fluids d/c NG tube -- symptoms resolved tolerating diet well Dermatitis secondary to allergic reaction to hair dye -- Positive erythema, pruritus around the scalp border and ears -- Prednisone course, loratadine, as needed Benadryl PCP follow-up in 1 week Elevated BP- no h/o HTN- likely due to above. - PRN Hydralazine -Improved Follow-up with PCP in Tobacco abuse - smokes 1 pack every 3 days. - Declined nicotine patch Hematemesis- likely Betzy Edwards tear due to vomiting episodes. H and H at 16, likely some hemoconcentration. Will monitor with NG tube. Recheck H and H later today. Will continue IV PPI for now. If concerning, will need GI eval. - Hg stable at 14 continue Protonix 40mg IV BID -- resolved Protonix 40 mg p.o. times at least 2 weeks monitor as outpatiient DVT ppx- SCDs Disposition Follow-up in 1 week with PCP Discharge Exam General- oriented x 3, not in distress, speaks in sentences with no effort or accessory muscle use Head-mild erythema around the scalp border, ears Eyes- anicteric Neck- no JVD Lungs- clear breath sounds bilaterally, no rales/wheezes Heart- normal rate, regular rhythm; no murmurs Abdomen- normal bowel sounds, nondistended, soft, nontender Extremities- no pretibial edema, no calf tenderness Neuro- alert, oriented x 3; no gross focal neurologic deficits Skin- warm & dry Updated Medication List Medication Instructions Recorded Confirmed Type diphenhydramine HCl 25 mg tablet 25 mg PO TID PRN Allergy Symptoms 06/28/23 06/28/23 History (Benadryl Allergy) hydrocortisone 2.5 % topical cream 1 applic topical BID itching 7 06/30/23 Rx days #30 grams loratadine 10 mg tablet (Wal-itin) 10 mg PO HS 7 days #7 tabs 06/30/23 Rx pantoprazole 40 mg tablet,delayed 40 mg PO BID 10 days #20 tabs 06/30/23 Rx release (Protonix) prednisone 20 mg tablet 20 mg PO DAILY 3 days #3 tabs 06/30/23 Rx Hospital Stay Data Consultations 06/28/23 11:42 Consult General Surgery Stat ED Decision to Admit Stat Diagnostic Imagining Performed Laboratory Results WBC 14.05 K/ul (4.8-10.8) H 06/29/23 05:45 RBC 4.60 M/uL (4.20-5.40) 06/29/23 05:45 Hgb 14.1 g/dl (12.0-16.0) 06/29/23 05:45 Hct 41.8 % (37.0-47.0) 06/29/23 05:45 MCV 90.9 fL (80.0-100.0) 06/29/23 05:45 MCH 30.7 pg (25.0-34.0) 06/29/23 05:45 MCHC 33.7 g/dL (32.0-36.0) 06/29/23 05:45 RDW Std Deviation 43.8 fL (36.4-46.3) 06/29/23 05:45 RDW Coeff of Nella 13.2 % (11.5-14.5) 06/29/23 05:45 Plt Count 333 K/uL (130-400) 06/29/23 05:45 MPV 11.0 fL (9.4-12.4) 06/29/23 05:45 Immature Gran % (Auto) 0.5 % 06/29/23 05:45 Neut % (Auto) 76.7 % 06/29/23 05:45 Lymph % (Auto) 10.9 % 06/29/23 05:45 [place] % (Auto) 8.1 % 06/29/23 05:45 Eos % (Auto) 3.6 % 06/29/23 05:45 Baso % (Auto) 0.2 % 06/29/23 05:45 Neut # (Auto) 10.77 K/uL (1.40-6.50) H 06/29/23 05:45 Lymph # (Auto) 1.53 K/uL (1.20-3.40) 06/29/23 05:45 [place] # (Auto) 1.14 K/uL (0.11-0.59) H 06/29/23 05:45 Eos # (Auto) 0.51 K/uL (0.00-0.50) H 06/29/23 05:45 Baso # (Auto) 0.03 K/uL (0.00-0.20) 06/29/23 05:45 Immature Gran # (Auto) 0.07 K/uL (0.01-0.20) 06/29/23 05:45 PT 9.6 Seconds (9.0-12.0) 06/28/23 09:48 INR 0.9 (0.9-1.1) 06/28/23 09:48 APTT 25 Seconds (21-31) 06/28/23 09:48 PTT Ratio 0.9 06/28/23 09:48 Sodium 137 mmol/L (136-145) 06/29/23 05:45 Potassium 3.8 mmol/L (3.5-5.1) 06/29/23 05:45 Chloride 107 mmol/L (98-107) 06/29/23 05:45 Carbon Dioxide 23 mmol/L (21-32) 06/29/23 05:45 Anion Gap 7 (3-11) 06/29/23 05:45 BUN 8 mg/dl (6-23) 06/29/23 05:45 Creatinine 0.69 mg/dl (0.6-1.2) 06/29/23 05:45 Est Cr Clr Drug Dosing 76.5 ml/min 06/29/23 05:45 Est GFR ( Amer) 109.7 ml/min 06/29/23 05:45 Est GFR (Non-Af Amer) 94.6 ml/min 06/29/23 05:45 BUN/Creatinine Ratio 11.6 (10-20) 06/29/23 05:45 Glucose 130 mg/dl (70-99(Fasting)) H 06/29/23 05:45 Calcium 8.0 mg/dl (8.6-10.3) L D 06/29/23 05:45 Phosphorus 3.0 mg/dl (2.5-4.9) 06/29/23 05:45 Magnesium 1.9 mg/dl (1.7-2.4) 06/29/23 05:45 Total Bilirubin 0.4 mg/dl (0.2-1.0) 06/29/23 05:45 AST 12 U/L (13-39) L 06/29/23 05:45 ALT 12 U/L (7-52) 06/29/23 05:45 Alkaline Phosphatase 90 U/L (34-104) 06/29/23 05:45 Troponin I High Sens 5.5 pg/ml (0-14) 06/28/23 09:48 Total Protein 5.7 gm/dl (6.0-8.3) L D 06/29/23 05:45 Albumin 3.4 gm/dl (3.4-5.0) 06/29/23 05:45 Globulin 2.3 gm/dl (2.5-4.0) L 06/29/23 05:45 Albumin/Globulin Ratio 1.5 (0.9-2) 06/29/23 05:45 Lipase 6 U/L (11-82) L 06/28/23 09:48 Urine Color Yellow 06/29/23 08:55 Urine Appearance Clear (Clear) 06/29/23 08:55 Urine pH 5.5 (4.5-7.5) 06/29/23 08:55 Ur Specific [place] 1.010 (1.000-1.030) 06/29/23 08:55 Urine Protein Negative (Negative) 06/29/23 08:55 Urine Glucose (UA) Negative (Negative) 06/29/23 08:55 Urine Ketones Negative (Negative) 06/29/23 08:55 Urine Blood Trace (Negative) H 06/29/23 08:55 Urine Nitrite Negative (Negative) 06/29/23 08:55 Urine Bilirubin Negative (Negative) 06/29/23 08:55 Urine Urobilinogen Negative (Negative) 06/29/23 08:55 Ur Leukocyte Esterase Negative (Negative) 06/29/23 08:55 Urine WBC (Auto) 0-5 /hpf (0-5) 06/29/23 08:55 Urine RBC (Auto) 0-2 /hpf (0-2) 06/29/23 08:55 U Hyaline Cast (Auto) 0-2 /lpf (0-2) 06/29/23 08:55 U Epithel Cells (Auto) 3-5 /hpf (0-2) H 06/29/23 08:55 Urine Bacteria (Auto) None Seen (None Seen) 06/29/23 08:55 Blood Type O Negative 06/28/23 10:26 Antibody Screen NEGATIVE 06/28/23 10:26 Impressions Abdomen/Pelvis CT 06/28/23 10:10 CT SCAN OF THE ABDOMEN AND PELVIS WITHOUT IV CONTRAST CLINICAL HISTORY: Vomiting. Upper abdominal pain. COMPARISON STUDY: Abdominal CT dated 08/05/2022. TECHNIQUE: CT scan of the abdomen and pelvis is performed from the lung bases to the proximal femora. Images are reviewed in the axial, sagittal, and coronal planes. IV contrast was not administered for this examination. Note that the examination was performed in suboptimal fashion without oral and IV contrast. A dose lowering technique was utilized adhering to the principles of ALARA. CT DOSE: 635.99 mGy.cm FINDINGS: Lung bases: The heart is normal in size and without pericardial effusion. The lung bases are clear noting dependent atelectasis. There is a small hiatal hernia. Liver: The unenhanced liver is normal in size, contour, and attenuation. There is no intrahepatic biliary ductal dilatation. Gallbladder: Unremarkable. Spleen: Normal in size and attenuation. Pancreas: Unremarkable. Adrenal glands: Unremarkable. Kidneys: The unenhanced kidneys are normal in size and without hydronephrosis. There are no renal calculi identified. There is no evidence of contour deforming renal mass lesion. Abdominal vasculature: The abdominal aorta is normal in course and caliber noting moderate atherosclerotic calcification. Bowel: The small bowel loops are distended and fluid-filled, measuring up to 3.4 cm in diameter. A transition point is seen in the right lower pelvis on axial image #2070. The distal/terminal ileum is decompressed, and the appearance is consistent with a small bowel obstruction. No focally thick-walled bowel loops are identified. There is no pneumatosis intestinalis or portal venous gas. Trace interloop fluid is observed. Small bowel is in the pelvis are fecalized. There are scattered colonic diverticula without CT evidence of acute diverticulitis. [id number] fecal retention is noted in the colon. The appendix is normal as visualized. Peritoneum: Trace free fluid is seen in the pelvis. No intraperitoneal free air is identified. There is a small fat-containing umbilical hernia. Lymphadenopathy: None. Pelvic viscera: The bladder is normal as visualized. The uterus is surgically absent. No adnexal lesion is seen. Skeletal structures: There is mild lumbosacral spondylosis and scoliosis. No lytic or blastic lesions are seen. IMPRESSION: 1. Small bowel obstruction. A transition point is suggested in the right lower pelvis and this is likely on the basis of adhesions. 2. There is trace interloop fluid. No intraperitoneal free air is identified. There is no pneumatosis intestinalis or portal venous gas. 3. Additional findings as above. ACT 112: Negative or not required by law. Electronically signed by: Janusz Jang M.D. 06/28/2023 11:02 AM KUB X-Ray 06/29/23 03:50 KUB CLINICAL HISTORY: Enteric tube assessment. FINDINGS: An AP, portable, upright view of the lower chest and upper abdomen is compared to abdominal radiograph and CT dated 06/28/2023. An enteric tube is in place. The tip is coiled below the diaphragm projecting over the gastric fundus. There is persistent gaseous distention of the small bowel loops in the upper abdomen indicating persistent obstruction. No intraperitoneal free air is seen below the diaphragm. There are no abnormal calcifications seen in the upper abdomen. The skeletal structures are osteopenic and appear intact. Scarring/atelectasis is noted at the lung bases. IMPRESSION: 1. An enteric tube is in place as above. 2. Persistent small bowel obstruction. Electronically signed by: Janusz Jang M.D. 06/29/2023 7:42 AM Pending Results Patient Have Any Pending Studies at Discharge: No Discharge Instructions Given to Patient (Per Discharging Provider) PLEASE REFER TO YOUR NEW MEDICATION LIST AND FOLLOW INSTRUCTIONS CAREFULLY. YOUR NEW MEDICATIONS INCLUDE: Loratadine-antihistamine for allergic reaction Prednisone-steroid course for allergic reaction Benadryl as needed for itching Protonix-antacid before possible esophageal tear from vomiting PLEASE CALL YOUR PRIMARY CARE PHYSICIAN OR RETURN TO THE ER IF WITH WORSENING OF SYMPTOMS, INCLUDING Abdominal pain, nausea vomiting, blood in the stools or vomitus, Worsening redness, itching, swelling of the face, around the scalp region etc. FOLLOW UP WITH PRIMARY CARE PHYSICIAN OUTLINED ABOVE. Total Time Total Time Spent Total Time Spent (In Minutes): 35 minutes
[2023-06-30] MEDS ORDERED: LORATADINE 10 MG TAB PO SCH (21:00)
--- NOTE | 2023-07-02 18:56 | Electrocardiogram Report ---
Test Reason : Blood Pressure : / mmHG Vent. Rate : 077 BPM Atrial Rate : 077 BPM P-R Int : 136 ms QRS Dur : 086 ms QT Int : 452 ms P-R-T Axes : 051 002 036 degrees QTc Int : 511 ms Normal sinus rhythm with sinus arrhythmia Possible Left atrial enlargement Prolonged QT Abnormal ECG When compared with ECG of 20-OCT-2021 20:26, T wave inversion less evident in Anterior leads QT has lengthened Confirmed by Harris Grewal ([id number]) on 07/02/2023 6:56:28 PM Referred By: Sim Adame Confirmed By:Harris Grewal
== END 2023-06-30 19:29 | disposition home or self-care (01) | DRG 388 ==
LOC: ED 09:35 → SUATTDRO 11:52 → EDINP 11:52 → 2N 16:19